=== PATIENT | male | born 1970 | race Caucasian/White ===

== ENCOUNTER 2020-07-23 17:39 | Outpatient (REF) | payer OTHER, SELFPAY ==
[2020-07-23 18:10] LABS: COVID-19 Test Negative (Negative)
== END 2020-07-23 17:40 | disposition home or self-care (01) ==
LOC: HO.LAB 17:39
PROVIDERS: Visit Provider Internal Medicine
DX: Z20.828 Contact with and (suspected) exposure to other viral communicable diseases (principal)
CPT/HCPCS: 87635

== ENCOUNTER 2020-08-13 11:31 | Outpatient (REF) | payer OTHER, SELFPAY ==
[2020-08-13 11:50] LABS: COVID-19 Test Negative (Negative)
== END 2020-08-13 11:32 | disposition home or self-care (01) ==
LOC: HO.LAB 11:31
PROVIDERS: Visit Provider Internal Medicine
DX: Z20.828 Contact with and (suspected) exposure to other viral communicable diseases (principal)
CPT/HCPCS: 87635; C9803

== ENCOUNTER 2020-10-02 11:34 | Outpatient (RCR) | payer OTHER, SELFPAY ==
[2020-10-07 09:40] LABS: SARS-COV-2 PCR UMBRL Not Detected
== END 2020-10-02 11:35 | disposition home or self-care (01) ==
LOC: HO.EMPCOV 11:34
PROVIDERS: Visit Provider Internal Medicine
DX: Z20.828 Contact with and (suspected) exposure to other viral communicable diseases (principal)
CPT/HCPCS: C9803; U0003

== ENCOUNTER 2021-09-25 08:07 | Emergency (ER) | payer OTHER, SELFPAY ==
--- NOTE | ~2021-09-25 | XR_ITS ---
EXAMINATION: XR fourth finger, RIGHT CLINICAL INFORMATION: Jammed finger with pain and swelling COMPARISON: None TECHNIQUE: Three views of the right ring finger. FINDINGS: Soft tissue swelling is seen about the fourth proximal interphalangeal joint. There is evidence of either an old healed fracture base of the fourth middle phalanx versus nondisplaced acute fracture. There is evidence for previous second and fifth metacarpal head fractures. XR/XR finger RT min 2V IMPRESSION: Question old or acute fracture base of the fourth middle phalanx with associated soft tissue swelling.
[2021-09-25 08:16] VITALS: BP 151/77; PULSE 90; RESP 18; TEMP 36.1; O2SAT 96; BMI 30.5
--- NOTE | 2021-09-25 08:46 | ED.EXTPRO ---
HPI - Extremity Problem General Chief complaint: Extremity Injury, Upper Stated complaint: r ring finger work related Time Seen by Provider: 09/25/21 08:32 Source: patient Mode of arrival: ambulatory Limitations: no limitations History of Present Illness HPI Narrative: Healthy 51-year-old male presents to ED for right ring finger pain. 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 He states he jammed his finger. Patient denies any other trauma. Patient denies falling to the ground. Patient has complete range of motion of finger, but with slight pain. Related Data Previous Rx's Medication Instructions Recorded naproxen 500 mg tablet 500 mg PO BID PRN 10 Days #20 tab 09/25/21 Allergies Allergy/AdvReac Type Severity Reaction Status Date / Time Penicillins Allergy Rash Verified 09/25/21 08:19 Review of Systems Review of Systems: Yes all other systems are reviewed and are negative Constitutional: Constitutional: Reports as per HPI and Reports no additional constitutional complaints Eyes: Eyes: Reports as per HPI and Reports no additional eye complaints ENT: Reports system reviewed and no additional complaints, except as documented and Reports as per HPI Cardiovascular: Cardiovascular: Reports as per HPI and Reports no additional cardiovascular complaints Respiratory: Respiratory: Reports as per HPI and Reports no additional respiratory complaints Gastrointestinal: Gastrointestinal: Reports as per HPI and Reports no additional gastrointestinal complaints Genitourinary: Genitourinary: Reports no additional male genitourinary complaints and Reports as per HPI Musculoskeletal: Musculoskeletal: Reports no additional musculoskeletal complaints and Reports as per HPI Comments: Right ring finger pain Neurologic: Reports system reviewed and no additional complaints, except as documented and Reports as per HPI Psychiatric: Psychiatric: Reports no additional psychiatric complaints and Reports as per HPI [facility] Past Medical History Medical History (Updated 09/25/21 @ 10:04 by CARRIE Gutierrez) No known health problems Social History Social History Advance Directives: No Advance Directives Information Provided: No Physical Exam Vital Signs: Vital Signs: Last Vital Signs Temp 97.0 F 09/25/21 08:16 Pulse 90 09/25/21 08:16 Resp 18 09/25/21 08:16 BP 151/77 H 09/25/21 08:16 Pulse Ox 96 09/25/21 08:16 BMI result Body Mass Index 30.5 Const: General: cooperative, healthy appearing, comfortable, no acute distress, well developed, alert, awake and Physically active Orientation/consciousness: patient oriented x3 HENMT: Head: Yes normal to inspection, Yes No palpable skull fracture present, Yes normocephalic, Yes atraumatic and No abrasion Eyes: General: appearance normal, both eyes and all related structures Neck: Neck: Yes normal visual inspection, Yes full ROM, Yes no lymphadenopathy, Yes no meningeal signs, Yes trachea midline, Yes supple, No anterior neck swelling and No tender Chest: Chest palpation & inspection: normal inspection of the chest and normal palpation of entire chest wall Resp: Effort & Inspection: normal respiratory effort and able to speak in complete sentences Auscultation: clear to auscultation bilaterally Cardio: Jugular venous distension: no JVD Heart sounds: S1 normal heart sound present and S2 normal heart sound present GI: Inspection: Yes normal to inspection and No abdominal wall ecchymosis Palpation (GI): Soft to palpation, not firm, nontender, no guarding and not rigid : General: No CVA tenderness and Yes no CVA tenderness Back/Spine/Pelvis: Back: no CVA tenderness, No CVA tenderness and No back tenderness Skin: General skin exam: no rashes or lesions noted and elasticity normal Neuro: General: patient oriented x3, gait normal, no meningeal signs and CN's II-XI intact bilaterally Cranial nerves: Yes CN's II-XII intact bilaterally Extrem: General: Yes normal to inspection and Yes full ROM Hand/finger images: 1. Mild swelling and tenderness on palpation. Capillary refills intact. Complete range of motion of finger but with pain. Patient able to do okay sign. Negative for any crepitus, ecchymosis, deformity, redness. Rest of extremity normal. Motor/neuro/vascular exam intact Psych: Appearance: grossly normal, well kempt and not disheveled Course Course Course Narrative: Patient sent for hand x-ray. Reevaluation(s) Reevaluation #1: X-ray shows 4th finger old versus acute fracture. Patient placed in a finger splint. Patient informed for which work [facility] and orthopedic Time: 10:03 MDM - Extremity (Nontraumatic) MDM Narrative Medical decision making narrative: finger fracture Discharge Plan Discharge Clinical Impression: Finger fracture, right Patient Disposition: Home, Self-Care Instructions: Finger Fracture (ED) Additional Instructions: Return to the ED for swelling, bluish black discoloration, redness, pus discharge, foul odor, coolness, hotness, or any other concerning symptoms. Please follow up with work connection and than for referral to orthopedic. Prescriptions: New naproxen 500 mg tablet 500 mg PO BID PRN (Reason: pain) 10 Days Qty: 20 RF: 0 Referrals: [facility] [Outside] - 2 days (4th finger fracture) César Wilson MD [Physician] - 2 days (Fourth finger fracture) Interventions: ED Discharge Assessment Last Done: 09/25/21 10:10 Discharge Date/Time: 09/25/21 10:10 Print Language: Maldivian
== END 2021-09-25 10:10 | disposition home or self-care (01) ==
PROVIDERS: Emergency Provider Emergency Medicine; PCP Internal Medicine
DX: S62.654A Nondisplaced fracture of middle phalanx of right ring finger, initial encounter for closed fracture (principal); Y35.811A Legal intervention involving manhandling, law enforcement official injured, initial encounter; Y93.89 Activity, other specified; Y92.239 Unspecified place in hospital as the place of occurrence of the external cause; Y99.0 Civilian activity done for income or pay
CPT/HCPCS: 29130; 73140; 99283

== ENCOUNTER → 2021-09-28 09:43 | Outpatient (BNVA) | payer OTHER, SELFPAY | PROVIDERS: PCP Internal Medicine; Visit Provider Physician Assistant Medical | DX: Z13.89 Encounter for screening for other disorder (principal) | CPT/HCPCS: 99203 ==

== ENCOUNTER → 2021-10-01 14:28 | Outpatient (BNVA) | payer OTHER, SELFPAY | PROVIDERS: PCP Internal Medicine; Visit Provider Physician Assistant | DX: S67.194A Crushing injury of right ring finger, initial encounter (principal) | CPT/HCPCS: 99202 ==

== ENCOUNTER → 2021-10-14 15:16 | Outpatient (BNVA) | payer OTHER, SELFPAY | PROVIDERS: PCP Internal Medicine; Visit Provider Physician Assistant | DX: Z13.89 Encounter for screening for other disorder (principal) | CPT/HCPCS: 99213 ==

== ENCOUNTER → 2024-02-16 15:30 | Outpatient (BNVA) | payer OTHER, SELFPAY | PROVIDERS: PCP Internal Medicine; Visit Provider Physician Assistant Medical | DX: Z13.89 Encounter for screening for other disorder (principal) | CPT/HCPCS: 73564; 99204 ==

== ENCOUNTER 2024-07-01 06:13 | Outpatient (REF) | payer OTHER, SELFPAY ==
[2024-07-01 06:26] LABS: MANUAL DIFF FLAG NO
[2024-07-01 06:54] LABS: Alanine Aminotransferase 23 U/L (0-40); Albumin Level 4.4 g/dL (3.5-5.0); Alkaline Phosphatase 57 U/L (39-117); Anion Gap 13 (12-20); Aspartate Amino Transferase 24 U/L (5-37); Bilirubin Total 0.5 mg/dL (0.0-1.0); Blood Urea Nitrogen 16 mg/dL (9-16); Calcium 9.7 mg/dL (8.4-10.2); Carbon Dioxide 25 mmol/L (22-29); Chloride 109 mmol/L (96-108); Cholesterol 205 mg/dL (<200); Estimated Glomerular Filt Rate > 60; Glucose Random 99 mg/dL (60-115); HDL Cholesterol 44 mg/dL (>40); LDL Cholesterol Calculated 142 mg/dL (<100); Potassium 3.9 mmol/L (3.3-5.1); Sodium 143 mmol/L (135-145); Total Protein 7.7 g/dL (6.5-8.0); Triglycerides 99 mg/dL (<150)
[2024-07-01 06:55] LABS: Estimated Average Glucose 114 mg/dL; Hemoglobin A1C 130.4767 umol/L; Hemoglobin A1c % 5.6 % (<6.0)
[2024-07-01 06:56] LABS: Basophils Absolute Auto 0.1 X10*3/uL (0.0-0.2); Basophils Percent Auto 0.7 % (0-2); Eosinophils Absolute Auto 0.5 X10*3/uL (0.0-0.4); Eosinophils Percent Auto 5.8 % (0-4); Hematocrit 42.7 % (42.0-52.0); Imm Gran Abs Auto 0.02 X10*3/uL (0.00-0.03); Imm Gran Pct Auto 0.2 % (0.0-0.4); Lymphocytes Absolute Auto 2.8 X10*3/uL (1.2-4.9); Lymphocytes Percent Auto 34.7 % (20-40); Mean Corpuscular HGB Conc 32.8 g/dl (31.0-36.0); Mean Corpuscular Hemoglobin 29.5 pg (27.0-33.0); Mean Corpuscular Volume 89.9 fL (80.0-98.0); Monocytes Absolute Auto 0.7 X10*3/uL (0.1-1.2); Monocytes Percent Auto 8.2 % (2-11); Neutrophils Absolute Auto 4.1 x10*3/uL (2.0-8.3); Neutrophils Percent Auto 50.4 % (45-73); Platelet Count 235 X10*3/uL (160-400); Red Blood Count 4.75 X10*6/uL (4.60-5.80); Red Cell Distribution Width 12.5 % (11.0-16.0); White Blood Count 8.1 X10*3/uL (4.8-10.8)
[2024-07-01 07:08] LABS: TSH reflex Free T4 1.78 uIU/mL (0.32-4.0)
== END 2024-07-01 06:14 | disposition home or self-care (01) ==
LOC: HO.LNP 06:13
PROVIDERS: Visit Provider Internal Medicine
DX: Z00.00 Encounter for general adult medical examination without abnormal findings (principal); E78.00 Pure hypercholesterolemia, unspecified; L60.8 Other nail disorders; Z13.1 Encounter for screening for diabetes mellitus
CPT/HCPCS: 80053; 80061; 83036; 84443; 85025

== ENCOUNTER 2024-07-23 20:24 | Emergency (ER) | payer OTHER, SELFPAY ==
--- NOTE | 2024-07-23 20:46 | ED_ITS ---
HPI - Skin/Abscess/Foreign Bdy General Chief complaint: Skin/Abscess/Foreign Body Stated complaint: poison scarlett Time Seen by Provider: 07/23/24 20:29 Source: patient Mode of arrival: ambulatory Limitations: no limitations History of Present Illness ED Provider: Dr. Burt Mullins HPI narrative: 54-year-old male with no significant past medical history who presents emergency department for evaluation of poison scarlett on his face and arms. Patient states that on Tuesday he was doing yard work. He states he pulled out multiple roots and then realized that he was exposed to poison scarlett. The next day he developed a pruritic rash on his face and arms. He was started on prednisone 30 mg once a day for 4 days and then a tapering dose. He states that the rash got significantly worse especially on his face so he came to the emergency department for evaluation. Patient states he has had poison scarlett multiple times in the past and he gets it almost every year. He denied shortness of breath lightheadedness, dizziness, nausea, vomiting, difficulty swallowing. He states that the rash is pruritic. Related Data Previous Rx's ?Medication ?Instructions ?Recorded naproxen 500 mg tablet 500 mg PO BID PRN pain 10 days #20 09/25/21 tabs prednisone 10 mg tablet 10 mg PO DIRECTED #30 tabs 07/22/24 famotidine 20 mg tablet 20 mg PO DAILY 14 days #14 tabs 07/23/24 hydroxyzine HCl 25 mg tablet 25 mg PO TID PRN itching #20 tabs 07/23/24 prednisone 20 mg tablet 60 mg (3 x 20 mg) PO DAILY 10 days 07/23/24 #30 tabs Allergies Allergy/AdvReac Type Severity Reaction Status Date / Time Penicillins Allergy Rash Verified 07/23/24 21:03 Review of Systems Review of Systems: Yes all other systems are reviewed and are negative PMFSH Past Medical History PMF Narrative: Social history: 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 Medical History No known health problems Social History Social History Advance Directives: No Advance Directives Information Provided: No Current occupational status: employed Current occupation: rt handed/C network security engineer Physical Exam Vital Signs: Vital Signs: Last Vital Signs Temp 98.1 F 07/23/24 21:00 Pulse 75 07/23/24 21:00 Resp 20 07/23/24 21:00 BP 144/74 H 07/23/24 21:00 Pulse Ox 93 07/23/24 21:00 O2 Del Method Room Air 07/23/24 21:00 BMI result Body Mass Index 31.2 Vital signs revealed an elevated blood pressure of 144/74 otherwise Exam: General: Awake, alert, male patient, in no distress Skin exam: The patient has an erythematous rash to his face, neck and arms consistent with contact dermatitis Medications Administered Discontinued Medications Generic Name Dose Route Start Last Admin Trade Name Freq PRN Reason Stop Dose Admin Famotidine 20 mg 07/23/24 21:02 07/23/24 21:46 Famotidine 20 Mg Tablet PO 07/23/24 21:03 Not Given ONCE ONE Famotidine 20 mg 07/23/24 21:31 07/23/24 21:40 Famotidine/Pf 20 Mg/2 Ml Vial IVPUSH 07/23/24 21:32 20 mg ONCE ONE Administration Hydroxyzine HCl 25 mg 07/23/24 21:02 07/23/24 21:33 Hydroxyzine Hcl 25 Mg Tablet PO 07/23/24 21:03 25 mg ONCE ONE Administration Sodium Chloride 1,000 mls @ 999 mls/hr 07/23/24 20:31 07/23/24 21:46 Ns IVCONT 07/23/24 21:31 Not Given .Q1H1M ONE Methylprednisolone Sodium Succinate 125 mg 07/23/24 21:22 07/23/24 21:40 Methylprednisolone Sod Succ 125 Mg/2 Ml Vial IVPUSH 07/23/24 21:23 125 mg ONCE ONE Administration Prednisone 60 mg 07/23/24 21:02 07/23/24 21:46 Prednisone 20 Mg Tablet PO 07/23/24 21:03 Not Given ONCE ONE Medical Decision Making Medical Decision Making MDM Narrative: 54-year-old male with no significant past medical history who was exposed to poison scarlett 3 days prior, he was taking prednisone 30 mg once a day but his rash is gotten significantly worse. Vital signs revealed an elevated blood pressure otherwise unremarkable. Physical examination revealed that he was not in any respiratory distress had no difficulty swallowing his saliva or talking. Patient has a erythematous rash on his face and arms consistent with contact dermatitis from poison scarlett. Differential diagnosis: ?Includes but is not limited to poison scarlett contact dermatitis, allergic reaction Following evaluation was ordered: Solu-Medrol 125 mg IV, famotidine 20 mg IV, Atarax 25 mg orally Course: 21:33 The patient's presentation is consistent with contact dermatitis secondary to poison scarlett to his face and arms. The patient's weight is 104 kg and my impression is he is on too low of a dose of prednisone given that he can take up to 60 mg daily. Patient will be treated with IV medications here in the emergency department and started on prednisone 60 mg once a day for 10 days. Patient does not have any chronic medical issues and does not require a tapered course. He was advised to take famotidine 20 mg once a day for 2 weeks. He was also prescribed Atarax 25 mg, 1 pill 3 times a day as needed for itchiness. He was given printed and verbal instructions and discharged home. Discharge Plan Discharge Clinical Impression: Allergic dermatitis due to poison scarlett Patient Disposition: Home, Self-Care Instructions: Poison Scarlett (ED) Additional Instructions: Stop taking the prednisone 10 mg pills. You were treated with Solu-Medrol (methylprednisolone) 125 mg IV and Pepcid (famotidine) 20 mg IV Take prednisone 20 mg pills, 3 pills once a day for 10 days. Take your next dose tomorrow evening. While you ?are taking prednisone, do not take any NSAIDs (Motrin, Advil, ibuprofen, Aleve, naproxen). Take Pepcid (famotidine) 20 mg pills, 1 pill once a day for 2 weeks. ?This medication reduces the amount of acid that your stomach produces and reduce some of the stomach effects of prednisone. This medication will also make your allergic reaction/poison scarlett rash better. Take Atarax (hydroxyzine) 25 mg pills, 1 pill every 6 hours as needed for itchiness Poison scarlett is not contagious and is not spread by itching. You may develop other areas of poison scarlett and this is from the initial exposure to the oil of the poison scarlett plant. Follow-up with your doctor in 2 days. Please return to the emergency department if your symptoms get worse or if you develop any symptoms that are concerning to you. Prescriptions: New famotidine 20 mg tablet 20 mg PO DAILY 14 Days Qty: 14 0RF prednisone 20 mg tablet 60 mg PO DAILY 10 Days Qty: 30 0RF hydroxyzine HCl 25 mg tablet 25 mg PO TID PRN (Reason: itching) Qty: 20 0RF No Action naproxen 500 mg tablet 500 mg PO BID PRN (Reason: pain) 10 Days Qty: 20 0RF prednisone 10 mg tablet 10 mg PO DIRECTED Qty: 30 0RF Rx Instructions: see taper instructions; 40 mg Daily x3 days, 30 mg daily x3 days, 20 mg daily x3 days, 10 mg daily x3 days Print Language: Algerian
[2024-07-23 21:00] VITALS: BP 144/74; PULSE 75; RESP 20; TEMP 36.7; O2SAT 93; BMI 31.2
[2024-07-23] MEDS: hydrOXYzine HCL 25 MG TABLET PO (21:33)
[2024-07-23] MEDS: Famotidine/PF 20 MG/2 ML VIAL IVPUSH (21:40)
[2024-07-23] MEDS: methylPREDNISolone Sod Succ 125 MG/2 ML VIAL IVPUSH (21:40)
[2024-07-23 21:53] VITALS: BP 143/76; PULSE 73
[2024-07-23] MEDS: EPINEPHrine 1 MG/ML VIAL 0.3 MG IM (21:53)
[2024-07-23 22:00] VITALS: PULSE 73; TEMP 36.6
[2024-07-23 22:09] VITALS: BP 143/76; PULSE 73; RESP 18; TEMP 36.6; O2SAT 94
== END 2024-07-23 22:44 | disposition home or self-care (01) ==
PROVIDERS: Emergency Provider Emergency Medicine Emergency Medical Services; PCP Internal Medicine
DX: L23.7 Allergic contact dermatitis due to plants, except food (principal); R21 Rash and other nonspecific skin eruption
CPT/HCPCS: 96372; 96374; 96375; 99283; 99284; J0171; J2919